=== PATIENT | female | born 1965 | race American Indian/Alaskan Native ===

== ENCOUNTER 2017-08-15 05:30 | Emergency (ER) | payer BC, OTHER ==
[2017-08-15 06:34] LABS: Basophils % (Auto) 0.9 % (0.0-1.8); Eosinophils % (Auto) 0.5 % (0.0-4.3); Hematocrit 38.2 % (30.3-42.9); Mean Corpuscular HGB Conc 34 % (30-34); Mean Corpuscular Hemoglobin 29 pg (28-32); Mean Corpuscular Volume 85 fl (79-97); Platelet Count 214 K/mm3 (140-440); Red Blood Count 4.49 M/mm3 (3.65-5.03); Red Cell Distribution Width 15.7 % (13.2-15.2); White Blood Count 7.9 K/mm3 (4.5-11.0)
[2017-08-15 06:52] LABS: Anion Gap 22 mmol/L; BUN/Creatinine Ratio 19; Blood Urea Nitrogen 13 mg/dL (7-17); Calcium 8.9 mg/dL (8.4-10.2); Carbon Dioxide 21 mmol/L (22-30); Glucose 174 mg/dL (65-100); Potassium 4.1 mmol/L (3.6-5.0); Sodium 137 mmol/L (137-145)
--- NOTE | 2017-08-15 08:26 | XRay Report ---
CHEST 2 VIEWS INDICATION: Shortness of breath. COMPARISON: None similar at this institution. FINDINGS: PA and lateral chest radiographs demonstrate normal cardiomediastinal silhouette. Clear lungs without pleural effusions or CHF. Demineralized bones with slight mid thoracic spine degenerative spurring. CONCLUSION: No acute chest process, as described. Thank you for the opportunity to participate in this patient's care.
--- NOTE | 2017-08-15 11:37 | Emergency Department Report ---
HPI - General Chief Complaint: Fall Time Seen by Provider: 08/15/17 11:19 - HPI HPI: Room 37 The patient is a 52-year-old female presented with a chief complaint of right rib pain and headache after fall. The patient states 3 days ago she tripped over her cat toys in her basement and fell striking her head and right ribs. Patient states she does not remember coming upstairs acknowledges there may have been loss of consciousness. The patient states since the fall she has had pain along the right side of her ribs and also has had a slight headache. The patient gives her rib pain a score of 10/10. Location: Head, right ribs Duration: 3 days Quality: Soreness Severity: 10/10 Modifying factors: [see above] Context: [see above] Mode of transportation: The patient drove himself to the emergency department and there are no visitors present ED Past Medical Hx - Past Medical History Previous Medical History?: Yes Hx Hypertension: Yes Hx Diabetes: Yes Hx Psychiatric Treatment: Yes (PTSD, depression Anxiety) Additional medical history: High cholesterol - Surgical History Past Surgical History?: Yes Additional Surgical History: tubaligation, ganglion cyst removal - Family History Family history: no significant - Social History Smoking Status: Current Every Day Smoker (3/4 pack per day) Substance Use Type: None (denies illicit drug use), Alcohol (moderate) - Medications Home Medications: Home Medications Medication Instructions Recorded Confirmed Last Taken Type Cyclobenzaprine [Flexeril] 10 mg PO TID PRN #20 tablet 08/15/17 Unknown Rx oxyCODONE /ACETAMINOPHEN [Percocet 1 - 2 tab PO Q6HR PRN #30 tablet 08/15/17 Unknown Rx 5/325] ED Review of Systems ROS: Stated complaint: RIGHT SIDE INJURY Other details as noted in HPI Comment: All other systems reviewed and negative Constitutional: denies: chills, fever Eyes: denies: eye pain, eye discharge, vision change ENT: denies: ear pain, throat pain Respiratory: denies: cough, shortness of breath, wheezing Cardiovascular: denies: chest pain, palpitations Endocrine: no symptoms reported Gastrointestinal: denies: abdominal pain, nausea, diarrhea Genitourinary: denies: urgency, dysuria, discharge Musculoskeletal: myalgia Skin: denies: rash, lesions Neurological: headache Psychiatric: denies: anxiety, depression Hematological/Lymphatic: denies: easy bleeding, easy bruising Physical Exam - Physical Exam Vital Signs: Vital Signs 08/15/17 05:44 Temperature 98.2 F Pulse Rate 104 H Blood Pressure 133/73 Physical Exam: GENERAL: The patient is well-developed well-nourished female sitting in chair not appearing to be in acute distress. [] HEENT: Normocephalic. Atraumatic. Extraocular motions are intact. Patient has moist mucous membranes. NECK: Supple. Trachea midline CHEST/LUNGS: Clear to auscultation. There is no respiratory distress noted. HEART/CARDIOVASCULAR: Regular. There is no tachycardia. There is no gallop rub or murmur. ABDOMEN: Abdomen is soft, nontender. Patient has normal bowel sounds. There is no abdominal distention. SKIN: There is no rash. There is no edema. There is no diaphoresis. NEURO: The patient is awake, alert, and oriented. The patient is cooperative. The patient has no focal neurologic deficits. The patient has normal speech. Cranial nerves II through XII grossly intact, no drift MUSCULOSKELETAL: There is tenderness along the right lower ribs anteriorly and laterally. There is no crepitus ED Course Vital Signs 08/15/17 05:44 Temperature 98.2 F Pulse Rate 104 H Blood Pressure 133/73 ED Medical Decision Making - Lab Data Result diagrams: 08/15/17 06:15 08/15/17 06:15 Laboratory Tests 08/15/17 08/15/17 06:15 06:15 WBC 7.9 RBC 4.49 Hgb 13.0 Hct 38.2 MCV 85 MCH 29 MCHC 34 RDW 15.7 H Plt Count 214 Lymph % (Auto) 15.2 Creek % (Auto) 8.1 H Eos % (Auto) 0.5 Baso % (Auto) 0.9 Lymph # 1.2 Creek # 0.6 Eos # 0.0 Baso # 0.1 Seg Neutrophils % 75.3 H Seg Neutrophils # 5.9 Sodium 137 Potassium 4.1 Chloride 98.0 Carbon Dioxide 21 L Anion Gap 22 BUN 13 Creatinine 0.7 Estimated GFR > 60 BUN/Creatinine Ratio 19 Glucose 174 H Calcium 8.9 Troponin T < 0.010 - EKG Data -: EKG Interpreted by In EKG shows normal: sinus rhythm Rate: normal - EKG Data When compared to previous EKG there are: previous EKG unavailable Interpretation: other (no ischemic changes seen) - Radiology Data Radiology results: report reviewed (CT head), image reviewed (chest x-ray, right rib series x-ray, CT head) interpreted by me: Chest x-ray-no focal infiltrates, no pneumothorax. No displaced rib fracture seen Right rib series [id number] of T6, T7 ribs laterally CT head (rubber radiologist)-no acute abnormality - Differential Diagnosis rib fracture, pneumothorax, ICH, close head injury Critical care attestation.: If time is entered above; I have spent that time in minutes in the direct care of this critically ill patient, excluding procedure time. ED Disposition Clinical Impression: Closed head injury, Multiple fractures of ribs, right side, initial encounter for closed fracture Disposition: TO HOME OR SELFCARE Is pt being admited?: No Does the pt Need Aspirin: No Condition: Stable Instructions: Rib Fracture (ED) Additional Instructions: Return to the emergency department immediately should you develop worsening symptoms, fever, inability to tolerate food or liquid or any other concerns. Prescriptions: Cyclobenzaprine [Flexeril] 10 mg PO TID PRN #20 tablet PRN Reason: Muscle Spasm oxyCODONE /ACETAMINOPHEN [Percocet 5/325] 1 - 2 tab PO Q6HR PRN #30 tablet PRN Reason: Pain Referrals: PRIMARY CAREMD [Primary Care Provider] - 3-5 Days TEAGAN HERNANDEZ MD [Staff Physician] - 3-5 Days Time of Disposition: 13:37
[2017-08-15 11:41] LABS: Bilirubin,Urine NEG (Negative); Blood,Urine SM (Negative); Ketones,Urine NEG (Negative); Leukocyte Esterase,Urine NEG (Negative); Mucus,Urine FEW /HPF; Nitrite,Urine NEG (Negative); Protein,Urine <15 mg/dL mg/dL (Negative); RBC,Urine < 1.0 /HPF (0.0-6.0); Urobilinogen,Urine < 2.0 mg/dL (<2.0); WBC,Urine < 1.0 /HPF (0.0-6.0)
[2017-08-15 12:00] VITALS: BP 133/73
--- NOTE | 2017-08-15 13:22 | Cat Scan Report ---
CT scan of head without IV contrast: History: Headache after fall. Findings: Ventricles are normal in size and midline in location. No evidence of acute ischemia, hemorrhage or mass. No extra axial fluid collection. Normal brainstem and cerebellum. Normal sinuses and mastoid air cells. Impression No acute intracranial abnormality.
--- NOTE | 2017-08-15 13:28 | XRay Report ---
Right wrist 3 views: History: Pain after fall. Findings: There is fracture of lateral aspect of right sixth, seventh and eighth rib. The ribs are not optimally visualized in views available. Impression: Multiple rib fractures right chest.
== END 2017-08-15 13:50 | disposition home or self-care (01) ==
LOC: ED 05:30
DX: S22.41XA Multiple fractures of ribs, right side, initial encounter for closed fracture (principal); S09.90XA Unspecified injury of head, initial encounter; I10 Essential (primary) hypertension; E11.9 Type 2 diabetes mellitus without complications; F43.10 Post-traumatic stress disorder, unspecified; F32.9 Major depressive disorder, single episode, unspecified; F41.9 Anxiety disorder, unspecified; E78.00 Pure hypercholesterolemia, unspecified; F17.200 Nicotine dependence, unspecified, uncomplicated; Z98.51 Tubal ligation status; W01.198A Fall on same level from slipping, tripping and stumbling with subsequent striking against other object, initial encounter; Y93.89 Activity, other specified; Y99.8 Other external cause status; Y92.89 Other specified places as the place of occurrence of the external cause
CPT/HCPCS: 36415; 70450; 71020; 80048; 81001; 84484; 85025; 93005; 93010